=== PATIENT | female | born 1990 | race Caucasian/White ===

== ENCOUNTER 2016-12-06 02:11 | Inpatient (IN) | payer BC ==
[~2016-12-06] VITALS: Ht 162.6 cm; Wt 69.1 kg
[2016-12-06] VITALS (44 sets, daily range): BP systolic 100–139; BP diastolic 51–71; PULSE 62–109; TEMP 98.3–98.8
[2016-12-06 04:06] LABS: BASO % 0.2 % (0.0-2.0); EOS % 0.1 % (0-4.0); GRAN # 13.3 (1.4-6.5); GRAN % 87.5 % (42.2-75.2); HEMATOCRIT 35.9 % (37.0-47.0); HEMOGLOBIN 12.1 g/dl (12.5-16.0); LYMPH # 1.1 (1.2-3.4); LYMPH % 7.3 % (20.0-51.0); MEAN CELL VOLUME 87 fl (80.0-100.0); MEAN CORPUSCULAR HEMOGLOBIN 29 pg (27.0-31.0); MEAN CORPUSCULAR HGB CONC 34 g/dl (33.0-37.0); MEAN PLATELET VOLUME 12.4 fl (7.4-10.4); MONO # 0.6 (0.1-0.6); MONO % 3.9 % (1.7-9.3); PLATELET COUNT 171 K/mm3 (130-400); RED BLOOD COUNT 4.14 M/mm3 (4.10-5.30); REDCELL DISTRIBUTION WIDTH-CV 13.3 % (11.5-14.5); WHITE BLOOD COUNT 15.2 K/mm3 (4.8-10.8)
[2016-12-06] MEDS ORDERED: PRENATAL PO (05:59)
[2016-12-07 04:30] VITALS: BP 100/51; PULSE 83; TEMP 98.2
[2016-12-07 07:36] VITALS: BP 90/48; PULSE 85; TEMP 98.2
[2016-12-07 16:30] VITALS: BP 104/58; PULSE 75; TEMP 98
[2016-12-07 19:30] VITALS: BP 101/62; PULSE 81; TEMP 98.4
[2016-12-08 07:50] VITALS: BP 110/56; PULSE 72; TEMP 98.2
[2016-12-08] MEDS ORDERED: PERCOCET 325 MG1 TA2 PO (08:29)
[2016-12-08] MEDS ORDERED: IBU800 M1 PO (08:29)
[2016-12-08 16:00] VITALS: BP 108/76; PULSE 78; TEMP 98.1
== END 2016-12-08 16:55 | disposition home or self-care (01) | DRG 775 ==
LOC: LDRO 02:11 → OB 02:56 → LDR 02:56 → OB 17:30 → LDRO 12-10 15:14
PROVIDERS: Obstetrics & Gynecology
PROC: 10E0XZZ Delivery of Products of Conception, External Approach (ICD-10-PCS; principal; 2016-12-06)
PROC: 0KQM0ZZ Repair Perineum Muscle, Open Approach (ICD-10-PCS; 2016-12-06)
DX: O99.824 Streptococcus B carrier state complicating childbirth (principal); O36.0130 Maternal care for anti-D [Rh] antibodies, third trimester, not applicable or unspecified; O70.1 Second degree perineal laceration during delivery; Z3A.39 39 weeks gestation of pregnancy; Z37.0 Single live birth
CPT/HCPCS: J2540; J2590; J2795; J7120